=== PATIENT | female | born 1980 | race Caucasian/White ===

== ENCOUNTER 2025-01-31 13:01 | Outpatient (AMB) | payer BC, SELFPAY ==
--- NOTE | 2025-01-31 13:06 | MHC.PC.OV ---
Vital Signs 01/31/25 13:08 Height 5 ft 2.25 in Weight 136 lb BMI 24.7 BP 102/60 Blood Pressure Location Lt brachial Position Sitting Respiration 16 Pulse 102 H Pulse Source Pulse Oximeter Temp 97.3 F Temp Source Temporal Artery Scan Pulse Oximetry (%) 98 Oxygen Delivery Method Room Air Intake Visit Reasons: physical Retail And Promotions Coordinator Required: No Accompanied by: Self / Same As Patient Allergies No Known Allergies Allergy (Verified 01/31/25 13:06) Medication List - Last Reconciled 01/31/25 by Maria Del Carmen Pierre MD levonorgestrel-ethinyl estrad 0.1-20 mg-mcg (Vienva) 1 tab PO DAILY topiramate 50 - 100 mg PO BEDTIME tretinoin 0.1% appl topical BEDTIME Tobacco use date assessed: 01/31/25 Dental Screening Dental Screen Date: 01/31/25 Did you have a dental visit in the last 12 months?: Yes Did you have a dental problem in the last 6 months where you did not have access to dental care?: No Was dental information given to patient?: Patient has dentist HPI HPI Comments History of Present Illness Details The patient is a 45 year old female presenting for an annual physical examination Possible Perimenopausal Symptoms: She reports the onset of numerous symptoms over the last six months, including feeling cold, hair loss, and dry skin. She denies experiencing hot flashes. She is still on control. She saw OBGYN provider Mona Mccann who recommended additional workup. Arthralgia: The patient reports joint pain, which she describes as arthritis-like. She has chronic arthralgia in her neck, which has been present for a long time. She also experiences pain in her hands and reports new-onset, severe, achy pain in her hips for the last six months, likening it to needing a hip replacement. Notes she was bitten by a tick in May. Migraine: The patient reports her migraines are doing much better and she has not had a severe headache in some time. She has been taking two pills of her topamax as a preventive measure. History of Tick Bite: The patient had a tick bite in May. Sciatica: The patient has a history of right-sided sciatica and notes she still has numbness on that side. Has had back surgery done at [facility]. She reports experiencing frequent charley horses sensation in her right leg since the onset of her sciatica. Preventative Care: The patient is due for a colonoscopy. She has had a recent breast wellness visit at [facility] and had unremarkable exam. She has a pending ultrasound and her regular mammogram scheduled for March. Medications: - control - topamax - Magnesium supplement, approximately 1200 mg Social History: - Nutritional Intake: She drinks two 12-ounce coffees in the morning and water for the rest of the day. - She also has chamomile tea before bed. Family History Updates: - Sister: Has a history of breast cancer, completed chemo and radiation, and is undergoing reconstruction. [facility] Medical History (Updated 01/31/25 @ 17:33 by Maria Del Carmen Pierre MD) Focal nodular hyperplasia of liver Routine medical exam Cold intolerance Joint pain Lumbar radiculopathy Overweight (BMI 25.0-29.9) Migraines Surgical History (Updated 01/31/25 @ 12:44 by Maria Del Carmen Pierre MD) Previous section H/O microdiscectomy S/P hernia surgery Family History (Updated 01/31/25 @ 12:45 by Maria Del Carmen Pierre MD) Paternal Grandfather Colon cancer Other Breast cancer Coronary artery disease Lung cancer Social History Housing: House Patient Tobacco Use Status: Former Tobacco user Years Smoked: 6 years e-Cigarette/Vaping Use: Never Used service: No Current occupational status: employed Current occupation: Restaurant senior policy analyst Questionnaire PHQ-9 Over the last 2 weeks, how often have you been bothered by any of the following problems? 1. Little interest or pleasure in doing things: not at all 2. Feeling down, depressed, or hopeless: not at all 3. Trouble falling or staying asleep, or sleeping too much: not at all 4. Feeling tired or having little energy: not at all 5. Poor appetite or overeating: not at all 6. Feeling bad about yourself - or that you are a failure or have let yourself or your family down: not at all 7. Trouble concentrating on things, such as reading the newspaper or watching television: not at all 8. Moving or speaking so slowly that other people could have noticed. Or the opposite - being so fidgety or restless that you have been moving around a lot more than usual: not at all 9. Thoughts that you would be better off or of hurting yourself in some way: not at all Total score: 0 Depression Screening Interpretation: Negative Depression Screening Done: Yes 39815 - PHQ-9 Billing: Yes Source: Developed by Drs. Jaden Demarco, Shyla Koroma, Jose Chamberlain and colleagues, with an educational rukhsana from [employer]. Thrive Questionnaire Date Thrive assessed: 01/31/25 I am a: Patient What is your living situation today?: I have a steady place to live Within the past 12 months, did the food you bought not last and you didn't have the money to get more?: Never true Within the past 12 months, did you worry whether your food would run out before you got money to buy more?: Never true Do you have trouble paying for medicines?: No Do you have trouble getting transportation to medical appointments?: No Do you have trouble paying your heating and electricity bill?: No Do you have trouble taking care of your child, family member or friend?: No Do you have trouble with day-to-day activities such as bathing, preparing meals, shopping, managing finances, etc.?: No Are you currently unemployed and looking for a job?: No Are you interested in more education?: No Please select the resources that you would like help with: None Currently or been in a relationship where the following occur: No concerns reported THRIVE Score: 0 AUDIT C Alcohol Use Questionnaire (AUDIT-C) 1. How often do you have a drink containing alcohol?: Never 3. How often do you have six or more drinks on one occasion?: Never Total Score: 0 SANTINO-7 AMB Questionnaire SANTINO-7 Date SANTINO - 7 assessed: 01/31/25 Feeling nervous, anxious, or on edge: 1 = Several days Not being able to stop or control worryin = Not at all Worrying too much about different things: 0 = Not at all Trouble relaxin = Several days Being so restless that it is hard to sit still: 1 = Several days Becoming easily annoyed or irritable: 1 = Several days Feeling afraid as if something awful might happen: 0 = Not at all Total SANTINO-7 score (0-4 normal; 5-9 mild; 10-14 moderate; 15-21 severe): 4 Source: Developed by Drs. Jaden Demarco, Shyla Koroma, Jose Chamberlain and colleagues, with an educational rukhsana from [employer]. Review of Systems Narrative Review of Systems - General: Reports always feeling cold and hair falling out. - Eyes: Reports recent trouble seeing without glasses, whereas she could previously get by without them. - Skin: dryness - Musculoskeletal: Reports joint pain in her neck, hands, and hips, describing it as arthritis-like. - She reports frequent charley horses in her right leg, which can awaken her from sleep. - Gastrointestinal: Denies constipation or diarrhea. - Neurological: per hpi - She reports continued numbness on her right side from prior sciatica. - Endocrine: Reports menopausal symptoms but denies hot flashes. Physical exam (Primary Care) Vital Signs: Last Vital Signs Temp 97.3 F 01/31/25 13:08 Pulse 102 H 01/31/25 13:08 Resp 16 01/31/25 13:08 BP 102/60 01/31/25 13:08 Pulse Ox 98 01/31/25 13:08 Oxygen Delivery Method Room Air 01/31/25 13:08 BMI result Body Mass Index 24.7 Tobacco/Smoking Status: Tobacco use Status Tobacco use date assessed 01/31/25 01/31/25 13:10 Patient Tobacco Use Status Former Tobacco user 01/31/25 13:13 e-Cigarette/Vaping Use Never Used 01/31/25 13:13 PHQ-9: PHQ-9 Score PHQ-9: Total score 0 01/31/25 15:13 Depression Screening Interpretation: Negative Thrive Assessment: Date of Thrive Assessment Date Thrive assessed 01/31/25 01/31/25 13:10 Currently or been in a relationship where the following occur: No concerns reported Narrative Physical Exam - Gen: NAD - HEENT: Ears are clear bilaterally. - Oropharynx is clear with no erythema - Lungs: Clear to auscultation bilaterally. - Cardiovascular: Regular rate and rhythm. - Neck: No thyroid enlargement. - No cervical or supraclavicular lymphadenopathy. - Carotids are clear, no bruits. - Abdomen: Soft, non-tender with normoactive bowel sounds. - Extremities: Trace pitting edema bilaterally. . Coding Level of Care Code Est Pt Prev Care 40-64y(67802) Add On Preventative Visit Only Diagnoses Arthralgia, unspecified joint M25.50 Joint pain location: unspecified Cold intolerance R68.89 Routine medical exam Z00.00 Additional Codes PHQ-9 - 71982 - PHQ-9 Billing: Yes ([id number]) Assessment & Plan Assessment & Plan (1) Joint pain: Code(s): M25.50 - Pain in unspecified joint Category: Medical Qualifiers: Joint pain location: unspecified Qualified Code(s): M25.50 - Pain in unspecified joint (2) Cold intolerance: Code(s): R68.89 - Other general symptoms and signs Category: Medical (3) Routine medical exam: Code(s): Z00.00 - Encounter for general adult medical examination without abnormal findings Category: Medical Plan Assessment and Plan 1. Possible perimenopausal symptoms, arthralgia, and cold intolerance - The constellation of symptoms including joint pain, hair loss, dry skin, and feeling cold, which began in the last six months, raises suspicion for an underlying etiology such as a thyroid disorder - Will proceed with fasting labs including a thyroid panel, Lyme serology, B12, and a rheumatology panel (including ESR, CRP) to investigate. 2. Arthralgia - Patient reports chronic neck arthritis and new, severe hip pain. - Plan to evaluate with a rheumatology panel to rule out inflammatory arthritis. 3. History of tick bite - Given the tick bite in May and subsequent joint pain, will check Lyme serology 4. Migraine - Patient reports significant improvement with current preventive medication. - Will continue current management. 5. Muscle cramps and right leg numbness - Patient reports frequent charley horses and residual numbness since her sciatica. - Will check magnesium, B12, and other electrolytes. - If B12 is low, will recommend supplementation. 6. Vision changes - Patient reports worsening vision requiring glasses more often. - Recommended appt with engineer assistant. 7. Health Maintenance - The patient is due for a colonoscopy. - A referral will be sent - Will follow up in six months Plan - Will order fasting labs including a thyroid panel, Lyme serology, rheumatology panel (ESR, CRP), B12, and magnesium levels. - Referral for a colonoscopy for the patient to schedule. - as above Patient Instructions - Go for fasting (8-10 hours) blood work at a lab location. - The labs will check your thyroid, for Lyme disease, for any inflammation like arthritis, and vitamin levels. - Our office will send a new referral for your colonoscopy, and the GI office will call you - Please call [facility] to schedule a new patient appointment with Dr. Denise Orders: Orders Lyme IgG/IgM w/reflex to WB Today M25.50 - Pain in unspecified joint ANTONIO Reflex Titer and Pattern Today M25.50 - Pain in unspecified joint Cyclic Citrullinated Peptide Today M25.50 - Pain in unspecified joint Lipid Panel Today M25.50 - Pain in unspecified joint, R68.89 - Other general symptoms and signs, Z00.00 - Encounter for general adult medical examination without abnormal findings Comprehensive Met. Panel Today M25.50 - Pain in unspecified joint, R68.89 - Other general symptoms and signs, Z00.00 - Encounter for general adult medical examination without abnormal findings Vitamin D 25-OH Total Today M25.50 - Pain in unspecified joint, R68.89 - Other general symptoms and signs, Z00.00 - Encounter for general adult medical examination without abnormal findings TSH reflex Free T4 Today R68.89 - Other general symptoms and signs Rheumatoid Factor Today M25.50 - Pain in unspecified joint Complete Blood Count Auto Diff Today M25.50 - Pain in unspecified joint, R68.89 - Other general symptoms and signs, Z00.00 - Encounter for general adult medical examination without abnormal findings Magnesium Today M25.50 - Pain in unspecified joint, R68.89 - Other general symptoms and signs, Z00.00 - Encounter for general adult medical examination without abnormal findings Vitamin B12 Today M25.50 - Pain in unspecified joint, R68.89 - Other general symptoms and signs, Z00.00 - Encounter for general adult medical examination without abnormal findings C Reactive Protein Today M25.50 - Pain in unspecified joint Erythrocyte Sedimentation Rate Today M25.50 - Pain in unspecified joint Referrals Open Access Screening Colonoscopy Referral Z12.11 - Encounter for screening for malignant neoplasm of colon Optometry Referral H53.9 - Unspecified visual disturbance
[2025-01-31 13:08] VITALS: BP 102/60; PULSE 102; RESP 16; TEMP 36.3; O2SAT 98; BMI 24.7
== END 2025-01-31 13:45 | disposition home or self-care (01) ==
LOC: HO.HMCHD 13:02
PROVIDERS: PCP Internal Medicine; Visit Provider Internal Medicine
DX: Z00.00 Encounter for general adult medical examination without abnormal findings (principal); M25.50 Pain in unspecified joint; R68.89 Other general symptoms and signs

== ENCOUNTER → 2025-01-31 13:01 | Outpatient (BNVA) | payer BC, SELFPAY | PROVIDERS: PCP Internal Medicine; Visit Provider Internal Medicine | DX: Z00.00 Encounter for general adult medical examination without abnormal findings (principal); M25.50 Pain in unspecified joint; R68.89 Other general symptoms and signs; H53.9 Unspecified visual disturbance; G43.909 Migraine, unspecified, not intractable, without status migrainosus; M54.31 Sciatica, right side; Z13.31 Encounter for screening for depression; Z13.39 Encounter for screening examination for other mental health and behavioral disorders | CPT/HCPCS: 96127 ==

== ENCOUNTER 2025-02-02 06:48 | Outpatient (REF) | payer BC, SELFPAY ==
--- OUTSIDE RECORDS SUMMARY | 2025-01-30 23:59 | XMS_ITS | Continuity of Care Document ---
Author Organization [facility] Address [address] [place] [address]- Care Team Providers Care Generator Man Name Role Phone Panting Jose Barnett MD Primary Care Physic jayy Encounter [facility] [place] Date(s): 12/31/24 - 01/30/25 [facility] [address] [place], [place] [address] Attending Physician: Elissa Link Admitting Physician: Elissa Link Referring Physician: Elissa Link Encounter Type: Triage Allergies, Adverse Reactions, Alerts No Known Allergies Immunizations Given and Recorded Vaccine Date Status Refusal Reason tetanus/diphtheria/pertussis, acel(Tdap) 11/30/21 Recorded tetanus/diphtheria/pertussis, acel(Tdap) 07/04/10 Given influenza virus vaccine, inactivated 12/24/19 Yared rded influenza virus vaccine, inactivated 01/29/19 Give n influenza virus vaccine, inactivated 1 02/19/18 Re corded influenza virus vaccine, inactivated 2 03/12/17 Re corded influenza virus vaccine, inactivated 11/30/14 Give n tetanus-diphtheria toxoids (Td) 07/21/15 Recorded tetanus-diphtheria toxoids (Td) 11/21/04 Given Hepatitis B Vaccine (old term) 3 05/13/05 Given Hepatitis B Vaccine (old term) 4 12/31/04 Given Hepatitis B Vaccine (old term) 11/21/04 Given Poliovirus Vaccine, Inactivated 08/17/92 Given Poliovirus Vaccine, Inactivated 10/18/82 Given Poliovirus Vaccine, Inactivated 10/06/79 Given Poliovirus Vaccine, Inactivated 78 Given Poliovirus Vaccine, Inactivated 78 Given Poliovirus Vaccine, Inactivated 78 Given Measles/Mumps/Rubella Virus Vaccine 12/22/89 Given Measles/Mumps/Rubella Virus Vaccine 05/01/79 Given Diphth/Tet/Pertussis, Acel (oldterm) 10/18/82 Give n Diphth/Tet/Pertussis, Acel (oldterm) 10/06/79 Give n Diphth/Tet/Pertussis, Acel (oldterm) 10/06/79 Give n Diphth/Tet/Pertussis, Acel (oldterm) 78 Give n Diphth/Tet/Pertussis, Acel (oldterm) 78 Give n Diphth/Tet/Pertussis, Acel (oldterm) 78 Give n 1Location History: [place], [place] 2Location History: [place], [place] 3Admin Note: VIS 08/17 4Admin Note: VIS 08/17 Medications Biotin By Mouth, Daily, 0 Refills, Maintenance, 06/30/19 1:01:00 PM EDT Start Date: 06/30/19 Status: Ordered Medication Dispense Status: Completed Total Allowed Fills: 1 Fills Dispensed: 0 Melatonin Daily at bedtime, 0 Refills, Maintenance, 03/06/18 8:34:58 AM EST Start Date: 03/06/18 Status: Ordered Medication Dispense Status: Completed Total Allowed Fills: 1 Fills Dispensed: 0 Misc Rx Refills 0, Maintenance, mag complex, 12/22/23 1:32:00 PM EST, Supply Start Date: 12/22/23 Status: Ordered Medication Dispense Status: Completed Total Allowed Fills: 1 Fills Dispensed: 0 Multivitamin 0 Refills, Maintenance, 12/09/23 1:24:00 PM EDT, Partial fill upon patient request if the prescription is for a schedule II opioid drug. Start Date: 12/09/23 Status: Ordered Medication Dispense Status: Completed Total Allowed Fills: 1 Fills Dispensed: 0 topiramate 50 mg oral tablet See Instructions, take 1-2 tablets by mouth at bedtime, # 180 tablet, 3 Refills, Maintenance, 06/21/24 11:48:00 AM EDT, [facility]/pharmacy #[id number], dose change, 157, cm, 12/22/23 13:08:00 EST, Height, 66, kg, 09/11/23 9:43:00 EDT, Dry Weight Start Date: 06/21/24 Status: Ordered Medication Dispense Status: Completed Quantity: 180.0 Unit: tablet Total Allowed Fills: 4 Fills Dispensed: 0 Turmeric = 538 mg, By Mouth, Daily, 0 Refills, Maintenance, 07/16/19 10:56:00 AM EDT Start Date: 07/16/19 Status: Ordered Medication Dispense Status: Completed Total Allowed Fills: 1 Fills Dispensed: 0 Vitamin C = 1,500 mg, By Mouth, Daily, 0 Refills, Maintenance, 07/16/19 10:55:00 AM EDT Start Date: 07/16/19 Status: Ordered Medication Dispense Status: Completed Total Allowed Fills: 1 Fills Dispensed: 0 Vitamin D3 = 50 mcg, By Mouth, Daily, 0 Refills, Maintenance, 07/16/19 10:55:00 AM EDT Start Date: 07/16/19 Status: Ordered Medication Dispense Status: Completed Total Allowed Fills: 1 Fills Dispensed: 0 Di 1 tablet, By Mouth, Daily, 0 Refills, Maintenance, 11/30/14 5:10:54 PM EDT Start Date: 11/30/14 Status: Ordered Medication Dispense Status: Completed Total Allowed Fills: 1 Fills Dispensed: 0 Zinc = 50 mg, By Mouth, Daily, 0 Refills, Maintenance, 07/16/19 10:55:00 AM EDT Start Date: 07/16/19 Status: Ordered Medication Dispense Status: Completed Total Allowed Fills: 1 Fills Dispensed: 0 Problem List Condition Confirmation Course Effective Dates Status H ealth Status Informant Anxiety Confirmed Active Focal nodular hyperplasia of liver Confirmed Active Ventral hernia Confirmed Active Renal calculus Confirmed Active Liver lesion Confirmed Active Lumbar radiculopathy Confirmed Active Migraine Confirmed Active Overweight Confirmed Active Routine medical exam Confirmed Active Sciatica Confirmed Active Social History Social History Type Response Sexual Preferred pronoun: S he/her. Smoking Status Former smoker; Tobac co user in household: No; Type: Cigarettes; Other: Quit years ago; entered on: 01/09/15 Sex Sex Representation Female (finding) Cytology report of Cervical or vaginal smear or scraping Cyto stain * Event Display: MACHINE CRATER Pap Test, Non-[facility] Authored Date: Laboratory * Event Display: Non BH Lab Results Authored Date: * Event Display: Non BH Lab Results Authored Date: * Event Display: Non BH Lab Results Authored Date: Imaging * Event Display: MRI Spine, Non- BH Authored Date: * Event Display: Ultrasound Pelvis, Non-BH Authored Date: * Event Display: CT Scan Abdomen, Non- BH Authored Date: * Event Display: X-Ray Miscellaneous, Non- BH Authored Date: * Event Display: MRI Ankle/Foot, Non- BH Authored Date: CT Abdomen * Event Display: CT Scan Abdomen Authored Date: Patient Care team information Care Team Personnel Name: Litzy Cosme RN Position: [facility] OB RN Member Role: Primary Care Nurse Name: Jose Blanco MD Position: [facility] Physician - Primary Care Member Role: PCP Address: [address] [place] [address] Telecom: Name: Renetta Sparks RN Position: [facility] OB RN Member Role: Primary Care Nurse Name: Yokasta Banks RN Position: [facility] OB RN Member Role: Primary Care Nurse Care Team Related Persons Name: PAULINA STEINER Name: SHERWIN MEEKS Insurance Providers Guarantor name: TANNER STEINER [facility] Plan Information #: 1 [facility] Payer Identifier: NATACHA Member Number: [id number] Group Number: [id number] Subscriber Identifier: NATACHA Relationship to Subscriber: spouse Coverage Type: NA Coverage Verification Date: NA Telecom: NA Address:
[2025-02-02 10:38] LABS: MANUAL DIFF FLAG NO
[2025-02-02 10:54] LABS: Hematocrit 44.1 % (37.0-47.0); Hemoglobin 14.4 g/dl (12.0-16.0); Imm Gran Abs Auto 0.01 X10*3/uL (0.00-0.03); Imm Gran Pct Auto 0.2 % (0.0-0.4); Lymphocytes Absolute Auto 1.8 X10*3/uL (1.2-4.9); Mean Corpuscular HGB Conc 32.7 g/dl (31.0-35.0); Mean Corpuscular Hemoglobin 32.7 pg (27.0-33.0); Mean Corpuscular Volume 100.0 fL (80.0-98.0); NRBC Abs Auto 0.000 X10*3/uL (0.0-0.012); NRBC Pct Auto 0.0 /100WBC (0.0-0.2); Platelet Count 322 X10*3/uL (160-400); Red Blood Count 4.41 X10*6/uL (4.20-5.50); White Blood Count 5.1 X10*3/uL (4.8-10.8)
[2025-02-02 11:29] LABS: Vitamin B12 204 pg/mL (200-900)
[2025-02-02 11:31] LABS: Alanine Aminotransferase 23 U/L (0-31); Albumin Level 4.5 g/dL (3.5-5.0); Alkaline Phosphatase 42 U/L (39-117); Anion Gap 11 (12-20); Aspartate Amino Transferase 21 U/L (5-31); Blood Urea Nitrogen 16 mg/dL (9-16); Calcium 9.1 mg/dL (8.4-10.2); Carbon Dioxide 22 mmol/L (22-29); Chloride 111 mmol/L (96-108); Cholesterol 185 mg/dL (<200); Estimated Glomerular Filt Rate > 60; HDL Cholesterol 66 mg/dL (>40); Magnesium 2.1 mg/dL (1.6-2.6); Potassium 4.3 mmol/L (3.3-5.1); Sodium 140 mmol/L (135-145); Total Protein 6.7 g/dL (6.5-8.0); Triglycerides 73 mg/dL (<150)
[2025-02-03 07:08] LABS: Lyme Abs Screen <0.90 index
== END 2025-02-02 06:49 ==
LOC: HO.HMGCLDS 06:48
PROVIDERS: PCP Internal Medicine; Visit Provider Internal Medicine
DX: Z00.00 Encounter for general adult medical examination without abnormal findings (principal); Z13.6 Encounter for screening for cardiovascular disorders; Z01.84 Encounter for antibody response examination; R68.89 Other general symptoms and signs; M25.50 Pain in unspecified joint
CPT/HCPCS: 36415; 80053; 80061; 82306; 82607; 83735; 84443; 85025; 85652; 86038; 86140; 86200; 86431; 86617; 86618